=== PATIENT | female | born 1995 | race Caucasian/White ===

== ENCOUNTER 2020-03-06 08:47 | Emergency (ER) | payer OTHER ==
[~2020-03-06] VITALS: Ht 154.9 cm; Wt 50.3 kg
[2020-03-06 08:58] VITALS: BP 145/90
--- NOTE | 2020-03-06 09:11 | NUR ---
WENT UP TO LAB FOR BLOOD DRAW.
--- NOTE | 2020-03-06 09:14 | NUR ---
Patient discharged to home in stable condition. Written and verbal after care instructions given. Patient verbalizes understanding of instruction.
== END 2020-03-06 09:16 | disposition home or self-care (01) ==
LOC: ER 08:51
DX: S61.431A Puncture wound without foreign body of right hand, initial encounter (principal); W46.1XXA Contact with contaminated hypodermic needle, initial encounter; Y93.89 Activity, other specified; Y92.89 Other specified places as the place of occurrence of the external cause; Y99.8 Other external cause status
CPT/HCPCS: 36415; 86317; 86706; 86803; 87806

== ENCOUNTER 2021-10-27 15:46 | Emergency (ER) | payer BC, OTHER ==
[~2021-10-27] VITALS: Ht 154.9 cm; Wt 43.1 kg
[2021-10-27 15:58] VITALS: BP 131/91
--- NOTE | 2021-10-27 16:00 | NUR ---
R HAND LACERATION W/ BROKEN GLASS LAST NIGHT. RATES PAIN 3/10. WILL CONTINUE TO MONITOR THE PATIENT.
[2021-10-27] MEDS ORDERED: LIDOCAINE /MPF 1% VIAL 5 ML VIAL ONE (16:04)
[2021-10-27] MEDS: BACITRACIN ZINC OINT PACKET 1 EA PACKET TP ONE (16:51)
[2021-10-27] MEDS: LIDOCAINE 1% INJ 50 ML MDV IJ ONE (16:51)
[2021-10-27] MEDS ORDERED: TDAP [DIPH/PERTUSSIS/TET] 0.5 ML VIAL IM ONE (16:53)
[2021-10-27] MEDS: TDAP [DIPH/PERTUSSIS/TET] 0.5 ML VIAL IM ONE (16:55)
--- NOTE | 2021-10-27 16:56 | NUR ---
Patient discharged to home in stable condition. Written and verbal after care instructions given. Patient verbalizes understanding of instruction.
== END 2021-10-27 16:57 | disposition home or self-care (01) ==
LOC: ER 15:47
DX: S61.411A Laceration without foreign body of right hand, initial encounter (principal); W25.XXXA Contact with sharp glass, initial encounter; Y93.89 Activity, other specified; Y92.89 Other specified places as the place of occurrence of the external cause; Y99.8 Other external cause status
CPT/HCPCS: 12001; 90471; 90715; 99283; A6403; J3490; L3763

== ENCOUNTER 2025-05-24 23:33 | Emergency (ER) | payer BC ==
[~2025-05-24] VITALS: Ht 154.9 cm; Wt 44.0 kg
[2025-05-25 00:14] LABS: PLATELET COUNT (AUTO) 250 K/uL (150-450); RED BLOOD CELL COUNT(AUTO) 4.29 MIL/uL (4.0-5.2); RED CELL DISTRIBUTION WIDTH 13.1 % (11.5-15.0); WHITE BLOOD COUNT (AUTO) 7.9 K/uL (4.3-11.0)
[2025-05-25 00:23] LABS: CALCIUM, SERUM 9.0 mg/dL (8.5-10.1); CREATININE 0.8 mg/dL (0.6-1.3); SODIUM SERUM 143.0 mmol/L (136-145); UREA NITROGEN, BLOOD 12.0 mg/dL (7-18)
[2025-05-25] MEDS: IV NS 0.9% 1,000 ML BAG IV ONE (00:30)
[2025-05-25 01:05] LABS: ASPARTATE AMINOTRANSFERASE 14.0 U/L (15-37); TOTAL PROTEIN, SERUM 7.8 g/dL (6.4-8.2)
[2025-05-25 04:27] VITALS: BP 152/102; TEMP 98.3; O2SAT 99
== END 2025-05-25 04:27 | disposition home or self-care (01) ==
LOC: ER 23:37
DX: E07.9 Disorder of thyroid, unspecified (principal); R00.2 Palpitations; E03.9 Hypothyroidism, unspecified; R42 Dizziness and giddiness
CPT/HCPCS: 99284; 93005; 85025; 36415 ×2; 80053; 96360; 96361; 84443; 84484; J7030